=== PATIENT | male | born 1990 | race African-American/Black ===

== ENCOUNTER 2016-11-23 23:50 | Emergency (ER) | payer SELFPAY ==
[2016-11-24] MEDS ORDERED: Cyclobenzaprine 10 MG TAB ONE (01:09)
[2016-11-24] MEDS ORDERED: Adacel (T-DAP) 0.5 ML VIAL ONE (01:09)
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
== END 2016-11-24 02:18 | disposition home or self-care (01) ==
LOC: NAV ERS 23:50
DX: S01.511A Laceration without foreign body of lip, initial encounter (principal); S13.4XXA Sprain of ligaments of cervical spine, initial encounter; S00.83XA Contusion of other part of head, initial encounter; Y04.8XXA Assault by other bodily force, initial encounter
CPT/HCPCS: 72125; 90471; 90715